=== PATIENT | male | born 1960 ===

== ENCOUNTER 2016-11-18 10:30 | Inpatient (IN) ==
[2016-11-18] MEDS ORDERED: LIDOCAINE 1% 20 ML VIAL MISC INJ ONE (10:31)
[2016-11-18] MEDS ORDERED: TICAGRELOR 90 MG TABLET PO ONE (10:31)
[2016-11-18] MEDS ORDERED: MIDAZOLAM 2 MG/2 ML VIAL IV ONE (10:31)
[2016-11-18] MEDS ORDERED: HEPARIN/NACL 0.9% 2 UNITS/ML 500 ML IV ONE (10:31)
[2016-11-18] MEDS ORDERED: LABETALOL 20 MG/4 ML SYRINGE IV ONE (10:31)
[2016-11-18] MEDS ORDERED: BIVALIRUDIN 250 MG VIAL IV ONE (10:31)
[2016-11-18] MEDS ORDERED: HYDROmorphone 2 MG/1 ML VIAL IV ONE (10:31)
[2016-11-18] MEDS ORDERED: MAGNESIUM SULF RIDER 2 GM in PREMIX 1 EACH IV PRN (11:45)
[2016-11-18] MEDS ORDERED: ONDANSETRON 4 MG/2 ML VIAL IV PRN (11:45)
[2016-11-18] MEDS ORDERED: MAGNESIUM SULF RIDER 4 GM in PREMIX 1 EACH IV PRN (11:45)
[2016-11-18] MEDS ORDERED: ZALEPLON 5 MG CAPSULE PO PRN (11:45)
[2016-11-18] MEDS ORDERED: SODIUM CHLORIDE 0.9% 1,000 ML IV SCH (12:00)
[2016-11-18 13:26] LABS: Basophils % 0.2 % (0.0-0.8); Eosinophils # 0.1 10*3/uL (0.0-0.87); Eosinophils % 0.4 % (0.00-10.9); Hematocrit 40.7 VOL% (42.0-52.0); Hemoglobin 14.6 GM/DL (14.0-18.0); Immature Granulocytes % 0.4 %; Immature Granulocytes Absolute 0.07 #; Lymphocytes # 2.4 10*3/uL (1.4-4.0); Lymphocytes % 13.4 % (21.2-54.2); Mean Corpuscular HGB Conc 35.9 GM/DL (32-36); Mean Corpuscular Hemoglobin 30 PG (27-34); Mean Corpuscular Volume 83.7 FL (87-102); Monocytes # 0.8 10*3/uL (0.11-0.8); Monocytes % 4.7 % (1.7-12.7); Neutrophils # 14.5 10*3/uL (1.4-7.4); Neutrophils % 80.9 % (38.7-73.9); Platelet Count 222 T/CUMM (130-400); Red Blood Count 4.86 MC/CUMM (3.8-5.5); Red Cell Distribution Width 12.3 % (9.3-17.3); White Blood Count 17.9 T/CUMM (4-12)
--- NOTE | 2016-11-18 13:26 | Order Completion Report ---
See report scanned to EMR
--- NOTE | 2016-11-18 16:33 | Cardiology History & Physical ---
Assessment and Plan (1) Acute IL, inferolateral wall Status: Acute Assessment and plan: The patient presented with an acute inferolateral myocardial infarction involving the first obtuse marginal branch. This was successfully stented with a 2.5 x 12 mm Xience alpine drug-eluting stent. This relieved his symptoms. We will continue medical management and risk factor modification. 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 We were unable to open this vessel. He has inferobasal akinesis. This is a very diseased vessel. For now I think we will manage this medically. Current Visit: Yes History of Present Illness History of present illness: Mr. Grant is a 56 year old male who has a history of hypertension, gastroesophageal reflux, and tobacco abuse. He also has a family history of coronary artery disease. This morning the patient developed severe substernal chest pain in the left side of his chest. There was some associated mild dyspnea and diaphoresis. There were no palpitations or syncope. There was no radiation. Some mild nausea but no vomiting. Patient was picked up by EMS who identified significant ST changes on his EKG suggestive of acute myocardial infarction. This information was relayed to the hospital. I reviewed his EKG and agreed and the patient was taken directly from the ambulance to the cardiac catheterization lab. His chest pain symptoms have improved with medical management by the ambulance staff. We took the patient directly to catheterization which demonstrated an acute myocardial infarction involving the first obtuse marginal branch. This was successfully stented with a 2.5 x 12 mm Xience alpine drug-eluting stent. Patient also had a chronic total occlusion of the right coronary artery and we attempted intervention on this vessel but were unable to cross the chronic total occlusion. The patient does not recall ever having myocardial infarction in the past. He had a mild ischemic cardiomyopathy on ventriculogram. After intervention the patient's symptoms completely resolved. There were no problems or complications from the procedure. He is going to be admitted for post myocardial infarction in postintervention management. We will address smoking cessation as well. Home Medications Medication Instructions Recorded Confirmed Type Lisinopril 20 mg PO DAILY 11/18/16 11/18/16 History Metoprolol Tartrate 25 mg PO BID 11/18/16 11/18/16 History Omeprazole 20 mg PO DAILY 11/18/16 11/18/16 History Home Medications Medication Instructions Recorded Confirmed Type Lisinopril 20 mg PO DAILY 11/18/16 11/18/16 History Metoprolol Tartrate 25 mg PO BID 11/18/16 11/18/16 History Omeprazole 20 mg PO DAILY 11/18/16 11/18/16 History Allergies Allergy/AdvReac Type Severity Reaction Status Date / Time Sulfa (Sulfonamide Allergy Severe DIFFICULTY Verified 11/18/16 12:52 Antibiotics) SWALLOWING 12 point system: reviewed and no additional remarkable complaints except as stated Medical,Surgical,& Family Hx - Medical History Cardio: History of: Hypertension - Surgical History Cardiac Surgeries: Sugical HX of: Cardiac Catheterization (11/18/2016 STENT TO THE [facility]) - Family History Family History: Reports;: Family Diabetes (MOTHER, FATHER), Family Heart Disease (MOTHER, FATHER), Family Hypertension (MOTHER, FATHER), Family Stroke ( FATHER) - Social History Smoking Status: Current every day smoker Frequency of Alcohol Use: Occasionally Type of Drug Use: None Cardiology Physical Exam - Constitutional Vitals: Vital Signs Temp Pulse Resp BP Pulse Ox 97.2 F L 87 18 148/88 95 11/18/16 12:20 11/18/16 16:05 11/18/16 16:05 11/18/16 16:05 11/18/16 16:05 Intake and Output 11/18/16 11/18/16 11/18/16 07:59 15:59 23:59 Intake Total 550 / 550 Output Total 1110 / 1110 Balance -560 / -560 Intake: Oral 550 / 550 Output: Urine 1110 / 1110 Other: Voiding Method Urinal Weight 85.275 kg Patient Weight 11/18/16 23:59 Weight 85.275 kg Exam: General: Appears well developed, well nourished, in mild distress from chest pain HEENT: Normocephalic, atraumatic Neck: Supple Neck, Midline Trachea, No Bruit, No JVD Cardiac: Regular rhythm, No Murmur, no gallop, no rub Lungs: Clear to auscultation, No Wheeze, Rales, Rhonchi Neuro: Cranial Nerve 2-12 Intact, Motor Function Grossly Intact Abdomen: Soft, Active Bowel Sounds, No Masses, No Pulsations/Bruits Skin: Normal color, no rash Extremities: No Clubbing, No Cyanosis, No Edema, Normal Upper Extr. Pulses Musculoskeletal: No acute abnormality noted Psychiatric: The patient does not appear to be anxious or depressed Result/EKG - Labs CBC & BMP: 11/18/16 12:39 Lab Results: I have reviewed the past 24 hour labs Labs: Laboratory Results - last 24 hr 11/18/16 11/18/16 11/18/16 12:39 12:39 12:39 WBC 17.9 H RBC 4.86 Hgb 14.6 Hct 40.7 L MCV 83.7 L MCH 30 MCHC 35.9 RDW 12.3 Plt Count 222 MPV 11.0 Neut % (Auto) 80.9 H Lymph % (Auto) 13.4 L Bailey % (Auto) 4.7 Eos % (Auto) 0.4 Baso % (Auto) 0.2 Neut # (Auto) 14.5 H Lymph # (Auto) 2.4 Bailey # (Auto) 0.8 Eos # (Auto) 0.1 Baso # (Auto) 0.0 Immature Gran % 0.4 Nucleated RBC % 0.0 Immature Gran # 0.07 Nucleated RBCs # 0.00 Immature Plt Fraction 0.0 Magnesium 2.3 Total Creatine Kinase 271 CK-MB (CK-2) 3.5 Troponin I 5.440 H - EKG EKG results: interpreted by me
[2016-11-18] MEDS ORDERED: ROSUVASTATIN 20 MG TABLET PO SCH (21:00)
[2016-11-18] MEDS: CARVEDILOL 6.25 MG TABLET PO SCH (21:20)
[2016-11-18] MEDS: TICAGRELOR 90 MG TABLET PO SCH (21:20)
[2016-11-19 05:46] LABS: Blood Urea Nitrogen 19 MG/DL (7-18); Cholesterol 247 MG/DL (50-200); Glucose 287 MG/DL (74-106); HDL Cholesterol 24 MG/DL (40-60); Osmolality,Calculated 281.1 MOS/KG (273-304); Potassium 3.8 MMOL/L (3.5-5.1); Risk Ratio 10.29; Sodium 135 MMOL/L (136-145); Triglycerides 257 MG/DL (2-150); VLDL CHOLESTEROL 51.4 MG/DL
--- NOTE | 2016-11-19 07:48 | Order Completion Report ---
See report scanned to EMR
[2016-11-19] MEDS: CARVEDILOL 6.25 MG TABLET PO SCH (08:38)
[2016-11-19] MEDS: TICAGRELOR 90 MG TABLET PO SCH (08:38)
--- NOTE | 2016-11-19 08:41 | XRay Report ---
XR chest 2V Date: 11/19/2016 4:00 AM History: Shortness of breath Comparison: None Technique: PA and lateral chest Findings: The heart is small and compressed by the over expanded lungs. Calcified granulomata/nodes with probable minimal chronic scarring. Additional possible bronchial wall thickening. Degenerative changes are noted. Impression: The lungs are overexpanded which can be seen with reactive airway disease, COPD, or emphysema. Evidence of old healed granulomatous disease with probable chronic scarring. Possible bronchial wall thickening which can be seen with active airway disease or viral illness. PROCEDURE INTERPRETED AT [facility] DEPARTMENT OF RADIOLOGY Final Report Signed by: Dr. Aida Barbosa
[2016-11-19] MEDS ORDERED: ASPIRIN EC 81 MG TABLET PO SCH (09:00)
[2016-11-19] MEDS ORDERED: LOSARTAN 25 MG TABLET PO SCH (09:00)
[2016-11-19 12:01] VITALS: BP 124/71
--- NOTE | 2016-11-19 14:29 | Discharge Summary ---
Tracy Moran April RN, am scribing for, and in the presence of, Dash Cade MD 14:27. Hospital Course - Hospital Course Hospital Course: Mr. Grant is a 56-year-old man with a history of hypertension, GERD, and tobacco abuse. He also has a family history of coronary artery disease. On the morning of November 18, he developed severe substernal chest pain in the left side of his chest with associated dyspnea and diaphoresis. He was transported by EMS who detected some significant ST changes with EKG suggestive of acute MT. He was taken emergently to the Resident Services Manager and was found to have had an acute myocardial infarction in the first obtuse marginal branch. This was successfully stented with a 2.5 x 12 mm Xience alpine drug-eluting stent. Patient also had a chronic total occlusion of the right coronary artery and we attempted intervention on this vessel but were unable to cross the chronic total occlusion. He is seen today sitting up in chair in no acute distress. He denies any chest pain, shortness of breath, or palpitations. Right groin is soft without evidence of bleeding or hematoma, no bruit detected. Good pedal pulses. It is felt he has met maximum benefit of hospitalization and will be discharged home today. Smoking cessation has been discussed with the patient, he states that he does intend to stop smoking. His lisinopril has been changed to losartan 12.5 mg daily and Lopressor has been changed to carvedilol 6.25 twice daily. Crestor 20 mg nightly has also been added as well as Brilinta 90 mg twice daily. He has been instructed on the importance of taking the Brilinta without fail. - Time spent with patient Time with patient DS: Greater than 30 minutes Diagnosis - Discharge Diagnosis (1) Acute MT, inferolateral wall Status: Chronic (2) Coronary artery disease Status: Chronic (3) Hypertension Status: Chronic (4) Smoker Status: Chronic (5) Status post insertion of drug eluting coronary artery stent Status: Chronic Specialty Discharge - Follow Up or Referrals Follow up with: Dash Cade MD [Physician] - 2 Weeks (With CBC, CMP, EKG) Discharge Plan - Discharge Data Disposition: Disch To Home/Self Care Condition at Discharge: Stable Discharge Diet: heart healthy Activity: other (Post cath expectations) Hygiene: other (Post cath expectations) Weight Bearing at Discharge: other (Post cath expectations) Driving: other (Post cath expectations) Contact your physician if you experience:: fever over 101, Difficulty voiding, Redness or swelling, Nausea/Vomiting, Shortness of breath, Bleeding, pain uncontrolled by pain medications - Discharge Medications New Carvedilol [Coreg] 6.25 mg PO BID #60 tablet Rosuvastatin [Crestor] 20 mg PO BEDTIME #30 tablet Ticagrelor [Brilinta] 90 mg PO BID #60 tablet Aspirin EC Tab 81 mg PO DAILY tablet Losartan [Cozaar] 12.5 mg PO DAILY #30 tablet Continue Omeprazole 20 mg PO DAILY Discontinued Lisinopril 20 mg PO DAILY Metoprolol Tartrate 25 mg PO BID - Follow Up or Referral Follow Up: Dash Cade MD [Physician] - 2 Weeks (With CBC, CMP, EKG) - Forms/Instructions Instructions: Myocardial Infarction (GEN), Left Heart Catheterization (DC), Heart Healthy Diet (GEN), Cigarette Smoking and Your Health (GEN), Coronary Intravascular Stent Placement (DC), How to Stop Smoking, Business Development Intern (GEN) Exam - Constitutional Vitals: Period Temp Pulse Resp BP Sys/Esqueda Pulse Ox Last 24 Hr 97.0 F-98.5 F 84-105 16-20 123-148/71-94 94-98 General appearance: normal weight, no acute distress - Head Head exam: Absent: abrasion, hematoma - Eye Eye exam: Present: EOMI. Absent: periorbital swelling, laceration to eyelids Pupils: Present: VEENA - Respiratory Respiratory exam: Present: clear to auscultation bilaterally. Absent: accessory muscle use, chest wall tenderness - Cardiovascular Cardiovascular exam: Present: regular rate and rhythm. Absent: diastolic murmur , systolic murmur - GI/Abdominal GI/Abdominal exam: Present: normal bowel sounds, soft. Absent: distended, tenderness - Extremities Exam Extremities exam: Present: other (Right groin soft without evidence of bleeding or hematoma). Absent: calf tenderness, edema - Neurological Exam Neurological exam: Present: alert, oriented X3 - Psychiatric Psychiatric exam: Present: normal affect, normal mood - Skin Skin exam: Present: warm, dry Discharge Results Labs on day of discharge: Labs from last 24 hours 11/19/16 11/18/16 11/18/16 04:10 12:39 12:39 Sodium 135 L Potassium 3.8 Chloride 102 Carbon Dioxide 23 Anion Gap 13.8 BUN 19 H Creatinine 1.10 GFR Calculation 85 BUN/Creatinine Ratio 17.00 Glucose 287 H Calculated Osmolality 281.1 Calcium 9.0 Magnesium 2.3 Total Creatine Kinase 249 271 CK-MB (CK-2) 3.3 3.5 Troponin I 6.430 H 5.440 H Triglycerides 257 H Cholesterol 247 H LDL Cholesterol 189.0 VLDL Cholesterol 51.4 HDL Cholesterol 24 L Heart Disease Risk Ratio 10.29 - Imaging and Cardiology Cardiology Procedure: image reviewed by me, report reviewed by me Procedure: Chest x-ray: report reviewed by me DS: Provider Consults: 11/18/16 11:46 Consult to Cardiac Rehabilitation [CONS] Routine Reason for Cardiac Rehabilitation: Risk Factor Modification Other Consult Comment: Evaluate and recommend Expected date of discharge: 11/19/16 Alyssia Moran Michael, MD, personally performed the services described in this documentation, ascribed by Nicky Molina RN in my presence, and it is both accurate and complete [id number] .
--- NOTE | 2016-11-19 14:42 | Order Completion Report ---
See report scanned to EMR
== END 2016-11-19 15:10 | disposition home or self-care (01) | DRG 247 ==
LOC: N.CL 10:30 → N.TELEN 12:06
PROVIDERS: ADMIT Internal Medicine Cardiovascular Disease; ATTEND Internal Medicine Cardiovascular Disease
PROC: CLCCHCL (ICD-10-PCS; 2016-11-18 10:45)